=== PATIENT | male | born 1955 | race Caucasian/White ===

== ENCOUNTER 2019-11-21 12:33 | Outpatient (CLI) | payer MEDICARE, MEDICAID | END 2019-11-21 23:59 | disposition home or self-care (01) | LOC: CARD DIAG 12:33 | DX: I08.8 Other rheumatic multiple valve diseases (principal); D49.2 Neoplasm of unspecified behavior of bone, soft tissue, and skin | CPT/HCPCS: 93306 ==

== ENCOUNTER → 2019-11-22 | Day surgery (SDC) | payer MEDICARE, MEDICAID ==
[~2019-11-22] VITALS: Ht 188 cm; Wt 113.0 kg
[2019-11-22 10:00] VITALS: BP 141/64
--- NOTE | 2019-11-22 10:06 | NUR ---
PICC LINE PLACEMENT : REF# [id number] LOT# [id number] EXP: 02/25/2020
== END | disposition home or self-care (01) ==
LOC: SSTAY O 07:50
DX: Z45.2 Encounter for adjustment and management of vascular access device (principal)
CPT/HCPCS: 36573; 76937; 93306

== ENCOUNTER 2020-11-20 13:26 | Outpatient (CLI) | payer MEDICARE, MEDICAID | END 2020-11-20 23:59 | disposition home or self-care (01) | LOC: CARD DIAG 13:26 | DX: I08.8 Other rheumatic multiple valve diseases (principal); C49.9 Malignant neoplasm of connective and soft tissue, unspecified; Z92.21 Personal history of antineoplastic chemotherapy | CPT/HCPCS: 93306 ==

== ENCOUNTER → 2021-04-14 | Outpatient (CLI) | payer MEDICARE, MEDICAID | END | disposition home or self-care (01) | LOC: CARD DIAG 09:12 | DX: C49.9 Malignant neoplasm of connective and soft tissue, unspecified (principal); I08.0 Rheumatic disorders of both mitral and aortic valves | CPT/HCPCS: 93306 ==

== ENCOUNTER 2021-04-17 13:25 | Emergency (ER) | payer MEDICARE, MEDICAID ==
[~2021-04-17] VITALS: Ht 188 cm; Wt 116.3 kg
[2021-04-17 13:44] VITALS: BP 143/68
[2021-04-17 16:26] LABS: BASOPHILS % (AUTO) 0.8 % (0-1); EOSINOPHILS % (AUTO) 1.1 % (0-6); HEMATOCRIT 40.8 % (42.0-52.0); HEMOGLOBIN 13.8 g/dl (14.0-17.9); LYMPHOCYTES # (AUTO) 0.8 X10'3 (1.1-4.8); LYMPHOCYTES % (AUTO) 18.2 % (21-51); MEAN CORPUSCULAR HEMOGLOBIN 32.5 PG (27.0-31.0); MEAN CORPUSCULAR HGB CONC 33.9 g/dL (33.0-36.5); MEAN CORPUSCULAR VOLUME 95.9 FL (78-98); MEAN PLATELET VOLUME 8.3 FL (7.4-10.4); MONOCYTES # (AUTO) 0.8 X10'3 (0-0.9); MONOCYTES % (AUTO) 17.7 % (2-12); NEUTROPHILS # (AUTO) 2.7 X10'3 (1.8-7.7); NEUTROPHILS % (AUTO) 62.2 % (42-75); PLATELET COUNT 184 X10'3 (140-440); RED BLOOD COUNT 4.25 X10'6 (4.70-6.10); RED CELL DISTRIBUTION WIDTH 15.7 % (11.5-14.5); WHITE BLOOD COUNT 4.3 X10'3 (4.5-11.0)
[2021-04-17 16:37] LABS: ANION GAP 8 (8-16); BLOOD UREA NITROGEN 13 MG/DL (7-18); BUN/CREATININE RATIO 15.5 (5.4-32.0); CHLORIDE 107 MMOL/L (99-107); CREATININE 0.84 MG/DL (0.60-1.10); GLUCOSE 140 MG/DL (70-104); POTASSIUM 3.9 MMOL/L (3.5-5.1); SODIUM 141 MMOL/L (135-145); TOTAL CARBON DIOXIDE 26.5 MMOL/L (24-32)
[2021-04-17 16:38] LABS: ALANINE AMINOTRANSFERASE 24 U/L (12-78); ALBUMIN 3.8 G/DL (3.4-5.0); ALBUMIN/GLOBULIN RATIO 1.1 (1.1-1.5); ALKALINE PHOSPHATASE 80 IU/L (46-116); ASPARTATE AMINO TRANSFERASE 16 U/L (10-37); BILIRUBIN,TOTAL 0.4 MG/DL (0.1-1.0); CALCIUM 8.7 MG/DL (8.5-10.1); TOTAL PROTEIN 7.3 G/DL (6.4-8.2); eGFR > 90 ML/MIN
[2021-04-17 19:21] LABS: BANDS% (MANUAL) 2 % (0-10); EOSINOPHILS % (MANUAL) 1 % (0-6); LYMPHOCYTES % (MANUAL) 13 % (21-51); MONOCYTES % (MANUAL) 16 % (2-12); NEUTROPHILS % (MANUAL) 68 % (42-75); PLATELET ESTIMATE NORMAL; TOTAL CELLS COUNTED 100
== END 2021-04-17 17:01 | disposition home or self-care (01) ==
LOC: ER 13:26
DX: I77.6 Arteritis, unspecified (principal); Z85.118 Personal history of other malignant neoplasm of bronchus and lung; G62.9 Polyneuropathy, unspecified
CPT/HCPCS: 36415; 80053; 85007; 85025; 85651; 99283